=== PATIENT | male | born 1980 | race Caucasian/White ===

== ENCOUNTER 2017-08-27 13:18 | Emergency (ER) | payer MEDICAID ==
[~2017-08-27] VITALS: Ht 190.5 cm; Wt 102.1 kg
[2017-08-27 13:41] VITALS: BP 128/78
[2017-08-27] MEDS ORDERED: ACETAMINOPHEN 500 MG TABLET ONE (14:07)
[2017-08-27 14:28] LABS: RAPID INFLUENZA A Negative (Negative); RAPID INFLUENZA B Negative (Negative)
[2017-08-27] MEDS ORDERED: ACETAMINOPHEN 500 MG TABLET PO ONE (14:30)
== END 2017-08-27 14:49 | disposition home or self-care (01) ==
LOC: ED 14:35
DX: J20.8 Acute bronchitis due to other specified organisms (principal); B96.89 Other specified bacterial agents as the cause of diseases classified elsewhere; F17.210 Nicotine dependence, cigarettes, uncomplicated
CPT/HCPCS: 71020; 87400; 99285

== ENCOUNTER 2018-07-24 21:13 | Emergency (ER) | payer MEDICAID ==
[~2018-07-24] VITALS: Ht 190.5 cm; Wt 105.0 kg
[2018-07-24 21:17] VITALS: BP 140/91
[2018-07-24 22:42] LABS: ALANINE AMINOTRANSFERASE 59 U/L (12-78); ALBUMIN 3.4 g/dL (3.4-5.0); ANION GAP 10 mmol/L (5-15); CALCIUM 8.7 mg/dL (8.5-10.1); CHLORIDE 107 mmol/L (98-107); CREATININE 1.02 mg/dL (0.7-1.3)
[2018-07-24 22:45] LABS: ALKALINE PHOSPHATASE 88 U/L (45-117); BILIRUBIN,TOTAL 0.2 mg/dL (0.2-1.0); TOTAL PROTEIN 6.6 g/dL (6.4-8.2)
== END 2018-07-24 23:19 | disposition home or self-care (01) ==
LOC: ED 22:50
DX: L29.9 Pruritus, unspecified (principal); R73.9 Hyperglycemia, unspecified; F17.210 Nicotine dependence, cigarettes, uncomplicated
CPT/HCPCS: 36415; 80053; 99283; Q0177

== ENCOUNTER 2018-12-06 22:19 | Emergency (ER) | payer MEDICAID ==
[~2018-12-06] VITALS: Ht 190.5 cm; Wt 112.3 kg
[2018-12-06 23:20] LABS: MD YES; MEAN CORPUSCULAR HEMOGLOBIN 27.9 pg (27.5-34.5); MEAN CORPUSCULAR HGB CONC 33.9 g/dL (33.2-36.2); MEAN CORPUSCULAR VOLUME 82.5 fL (81-97); MEAN PLATELET VOLUME 8.6 fL (7.4-10.4); PLATELET COUNT 234 x10^3/uL (130-400); RED BLOOD COUNT 5.53 x10^6/uL (4.38-5.82)
[2018-12-06] MEDS ORDERED: ASPIRIN 81 MG TABLET CHEW ONE (23:28)
[2018-12-06] MEDS ORDERED: ASPIRIN 81 MG TABLET CHEW PO ONE (23:30)
[2018-12-06 23:32] LABS: ALANINE AMINOTRANSFERASE 54 U/L (12-78); ANION GAP 8 mmol/L (5-15); CALCIUM 8.9 mg/dL (8.5-10.1); CHLORIDE 107 mmol/L (98-107); CREATININE 1.06 mg/dL (0.7-1.3)
--- NOTE | 2018-12-06 23:36 | NUR ---
STATES NUMBNESS AND TINGLING IN L ARM W/ CP ON L SIDE AND ASSOCIATED SOB. "FEELS LIKE STABBING."x1 DAY. MONITORS APPLIED, SIDERAISL UP X2, CALL LIGHT WITHIN REACH. PT MEDICATED PER MAR
[2018-12-06 23:37] LABS: ALKALINE PHOSPHATASE 85 U/L (45-117); BILIRUBIN,TOTAL 0.5 mg/dL (0.2-1.0); TOTAL PROTEIN 7.2 g/dL (6.4-8.2); TROPONIN I < 0.015 ng/mL (0.000-0.045)
[2018-12-06] MEDS ORDERED: ENAL10TA PO (23:40)
[2018-12-06] MEDS ORDERED: MELO15TA24 PO (23:40)
[2018-12-06] MEDS ORDERED: BENZ-17 PO (23:40)
[2018-12-06] MEDS ORDERED: HYDR50TA13 PO (23:40)
[2018-12-06] MEDS ORDERED: LAMO100T PO (23:40)
[2018-12-06 23:53] LABS: BAND#(MANUAL) 0.19 x10^3/uL; BANDS%(MANUAL) 1 % (0-7); LYMPH#(MANUAL) 2.81 x10^3/uL (1-3.4); LYMPHS% (MANUAL) 15 % (22-44); MONOS#(MANUAL) 0.37 x10^3/uL (0.3-2.7); MONOS% (MANUAL) 2 % (2-9); SEG#(MANUAL) 15.33 x10^3/uL (1.8-6.8); SEGS% (MANUAL) 82 % (42-75)
[2018-12-06 23:55] LABS: <PLATELET ESTIMATE> ADEQUATE; <PLT MORPHOLOGY> NORMAL PLT MORPH; <RBC MORPHOLOGY> NORMAL
[2018-12-07] MEDS ORDERED: KETOROLAC 30 MG/1 ML IVPush ONE (00:30)
[2018-12-07] MEDS ORDERED: ALBUTEROL SULFATE 2.5 MG/3 ML NPPB ONE (00:30)
[2018-12-07] MEDS ORDERED: KETOROLAC 30 MG/1 ML ONE (00:44)
--- NOTE | 2018-12-07 00:48 | NUR ---
PT MEDICATED PER MAR. MONITORS IN PLACE, DENIES NEEDS, AWAITING CTA
[2018-12-07] MEDS ORDERED: OMNIPAQUE 350 MG/ML, 100ML BOTTLE ONE (00:58)
[2018-12-07 01:20] VITALS: BP 114/86
--- NOTE | 2018-12-07 01:21 | NUR ---
DR WHEAT AT BED SIDE FOR UPDATED POC PT WILL BE DC'D
[2018-12-07] MEDS ORDERED: CEFTRIAXONE PMX 1GM/50ML 50 ML IV ONE (01:30)
[2018-12-07] MEDS ORDERED: CEFTRIAXONE PMX 1GM/50ML 50 ML ONE (01:38)
--- NOTE | 2018-12-07 01:44 | NUR ---
IV ABX IS INFUSING THEN PT WILL BE DC'D PT UNDERSTOOD DC POC
== END 2018-12-07 02:17 | disposition home or self-care (01) ==
LOC: ED 23:28
DX: J44.1 Chronic obstructive pulmonary disease with (acute) exacerbation (principal); J15.9 Unspecified bacterial pneumonia; D72.829 Elevated white blood cell count, unspecified; F17.200 Nicotine dependence, unspecified, uncomplicated
CPT/HCPCS: 36415; 71046; 71275; 80053; 83880; 84484; 85025; 93005; 94640; 96365; 96375; 99284; J0696; J1885; J7613; Q9967

== ENCOUNTER 2019-02-19 13:38 | Inpatient (IN) | payer MEDICAID ==
[~2019-02-19] VITALS: Ht 190.5 cm; Wt 103.5 kg
[~2019-02-19 13:38] MED LIST: BENZ-17 PO; ENAL10TA PO; HYDR50TA13 PO; LAMO100T PO; MELO15TA24 PO
[2019-02-19 14:29] LABS: MEAN CORPUSCULAR HEMOGLOBIN 28.4 pg (27.5-34.5); MEAN CORPUSCULAR HGB CONC 33.1 g/dL (33.2-36.2); MEAN CORPUSCULAR VOLUME 85.9 fL (81-97); MEAN PLATELET VOLUME 8.9 fL (7.4-10.4); PLATELET COUNT 211 x10^3/uL (130-400)
[2019-02-19] MEDS ORDERED: ONDANSETRON 2MG/ML, 2ML IVPush ONE (14:30)
[2019-02-19] MEDS ORDERED: SODIUM CHLORIDE FLUSH 10ML SYR IVF ONE (14:30)
[2019-02-19 14:38] LABS: INTERNATIONAL NORMALIZED RATIO 1.07 (0.93-1.1); PROTHROMBIN TIME 11.2 Seconds (9.6-11.5)
[2019-02-19 14:39] LABS: ALANINE AMINOTRANSFERASE 31 U/L (12-78); ALBUMIN 3.7 g/dL (3.4-5.0); ANION GAP 10 mmol/L (5-15); CALCIUM 9.2 mg/dL (8.5-10.1); CHLORIDE 100 mmol/L (98-107); CREATININE 1.06 mg/dL (0.7-1.3)
[2019-02-19 14:41] LABS: ALKALINE PHOSPHATASE 93 U/L (45-117); TOTAL PROTEIN 7.9 g/dL (6.4-8.2)
[2019-02-19 14:42] LABS: MD YES
[2019-02-19 14:45] LABS: <RBC MORPHOLOGY> NORMAL; BAND#(MANUAL) 0.65 x10^3/uL; BANDS%(MANUAL) 3 % (0-7); LYMPH#(MANUAL) 2.82 x10^3/uL (1-3.4); LYMPHS% (MANUAL) 13 % (22-44); MONOS#(MANUAL) 0.87 x10^3/uL (0.3-2.7); MONOS% (MANUAL) 4 % (2-9); SEG#(MANUAL) 17.36 x10^3/uL (1.8-6.8); SEGS% (MANUAL) 80 % (42-75)
[2019-02-19 14:46] LABS: <PLATELET ESTIMATE> ADEQUATE; <PLT MORPHOLOGY> NORMAL PLT MORPH
--- NOTE | 2019-02-19 14:49 | NUR ---
LOWER ABDOMINAL PAIN STARTED TUESDAY NIGHT. VOMITED TWICE, LAST TIME AT NOON TODAY. WEAKNESS, LEELING LIGHTHEAD, FUZZY HEADED
--- NOTE | 2019-02-19 15:06 | NUR ---
TASK RN: UA COLLECTED & SENT TO LAB PER KELLY BUCKNER.
[2019-02-19] MEDS ORDERED: ONDANSETRON 2MG/ML, 2ML ONE (15:11)
[2019-02-19] MEDS ORDERED: HYDROmorphone 1 MG/ML, 1ML VIAL ONE (15:12)
[2019-02-19] MEDS: HYDROmorphone 2 MG/ML, 1ML IVPush PRN ×2 (15:16→19:35)
--- NOTE | 2019-02-19 15:19 | NUR ---
TASK RN: ZOFRAN AND DILAUDID GIVEN PER EMAR. PT LAST FOOD INTAKE "A COUPLE OF DAYS AGO", SIPS OF GATORADE APPROX 1200 TODAY, SIPS OF WATER AFTER ARRIVAL TO ED. LAST BM: SMALL AMOUNTS. C/O PAIN TO LOWER ABD/GROIN AREA. PT'S IN ROOM.
[2019-02-19 15:20] LABS: CULTURE INDICATED? YES; MICROSCOPIC INDICATED
--- NOTE | 2019-02-19 15:22 | NUR ---
PT TO CT PER JEROD
[2019-02-19] MEDS ORDERED: OMNIPAQUE 350 MG/ML, 100ML BOTTLE ONE (15:43)
--- NOTE | 2019-02-19 16:01 | NUR ---
PT STATES SOME IMPROVEMENT IN ABDOMINAL PAIN SINCE MEDICATED AND APPEARS MORE COMFORTABLE
[2019-02-19] MEDS ORDERED: CIPROFLOXACIN/PMX 400MG/200ML 200 ML ONE (16:19)
[2019-02-19] MEDS ORDERED: METRONIDAZOLE PMX 500MG/100ML 100 ML IVPB ONE (16:30)
[2019-02-19] MEDS ORDERED: CIPROFLOXACIN/PMX 400MG/200ML 100 ML IVPB ONE (16:30)
--- NOTE | 2019-02-19 16:45 | NUR ---
HOSPITALIST AT BEDSIDE
[2019-02-19] MEDS ORDERED: SODIUM CHLORIDE FLUSH 10ML SYR IVF PRN (17:00)
--- NOTE | 2019-02-19 17:17 | NUR ---
REPORT TO CAMPBELL MENDOZA. PT TO BE TRANSPORTED
[2019-02-19] MEDS ORDERED: METRONIDAZOLE PMX 500MG/100ML 100 ML ONE (17:19)
[2019-02-19] MEDS ORDERED: morphine SULFATE 10 MG/ML, 1ML IVPush PRN (17:30)
[2019-02-19] MEDS ORDERED: ONDANSETRON 2MG/ML, 2ML IVPush PRN (17:30)
[2019-02-19] MEDS ORDERED: KETOROLAC 30 MG/1 ML IVPush PRN (17:30)
[2019-02-19 17:53] VITALS: BP 108/72
[2019-02-19] MEDS ORDERED: ENALAPRILAT 1.25 MG/ML, 2ML IVPush PRN (18:00)
[2019-02-19] MEDS ORDERED: NICOTINE 14MG/24 HR PATCH.TD24 TD ONE (18:00)
[2019-02-19] MEDS ORDERED: ALBUTEROL SULFATE 2.5MG/0.5ML NPPB PRN (18:30)
[2019-02-19 19:09] VITALS: BP 113/69
[2019-02-19] MEDS: CEFEPIME 2 GM in DEXTROSE 5% 100 ML IV SCH (21:20)
[2019-02-19] MEDS: LACTATED RINGERS 1,000 ML IV SCH (21:20)
[2019-02-19] MEDS: METRONIDAZOLE PMX 500MG/100ML 100 ML IV SCH (22:18)
[2019-02-19 23:09] VITALS: BP 119/75
[2019-02-20 03:19] VITALS: BP 109/72
[2019-02-20] MEDS: CEFEPIME 2 GM in DEXTROSE 5% 100 ML IV SCH ×3 (05:03→21:02)
[2019-02-20] MEDS: METRONIDAZOLE PMX 500MG/100ML 100 ML IV SCH ×3 (05:40→21:50)
[2019-02-20 05:44] LABS: MEAN CORPUSCULAR HEMOGLOBIN 28.1 pg (27.5-34.5); MEAN CORPUSCULAR HGB CONC 33.2 g/dL (33.2-36.2); MEAN CORPUSCULAR VOLUME 84.6 fL (81-97); MEAN PLATELET VOLUME 8.9 fL (7.4-10.4); PLATELET COUNT 207 x10^3/uL (130-400); RED BLOOD COUNT 5.26 x10^6/uL (4.38-5.82); RED CELL DISTRIBUTION WIDTH 13.7 % (9.4-14.8)
[2019-02-20 06:05] LABS: ALANINE AMINOTRANSFERASE 24 U/L (12-78); ALBUMIN 3.3 g/dL (3.4-5.0); ANION GAP 9 mmol/L (5-15); CALCIUM 8.9 mg/dL (8.5-10.1); CHLORIDE 101 mmol/L (98-107); CREATININE 1.13 mg/dL (0.7-1.3)
[2019-02-20 06:07] LABS: ALKALINE PHOSPHATASE 73 U/L (45-117); BILIRUBIN,TOTAL 0.8 mg/dL (0.2-1.0); TOTAL PROTEIN 7.4 g/dL (6.4-8.2)
[2019-02-20 06:34] LABS: MD YES
[2019-02-20 06:36] LABS: BANDS%(MANUAL) 10 % (0-7); LYMPH#(MANUAL) 2.31 x10^3/uL (1-3.4); LYMPHS% (MANUAL) 11 % (22-44); MONOS#(MANUAL) 0.21 x10^3/uL (0.3-2.7); MONOS% (MANUAL) 1 % (2-9); SEG#(MANUAL) 16.38 x10^3/uL (1.8-6.8); SEGS% (MANUAL) 78 % (42-75)
[2019-02-20 06:37] LABS: <PLATELET ESTIMATE> ADEQUATE; <PLT MORPHOLOGY> NORMAL PLT MORPH; <RBC MORPHOLOGY> NORMAL
[2019-02-20 07:43] LABS: HEMOGLOBIN A1C 6.2 % (4.2-6.3)
[2019-02-20 07:52] VITALS: BP 115/73
[2019-02-20] MEDS: LACTATED RINGERS 1,000 ML IV SCH ×2 (07:52→15:30)
[2019-02-20] MEDS: LAMOTRIGINE 100 MG TABLET PO SCH ×2 (07:52→21:04)
[2019-02-20] MEDS ORDERED: OXYcodone IR 5MG TABLET PO PRN (08:30)
[2019-02-20] MEDS ORDERED: ACETAMINOPHEN 500 MG TABLET PO PRN (08:30)
[2019-02-20 12:23] VITALS: BP 116/76
[2019-02-20 20:49] VITALS: BP 118/68
[2019-02-20] MEDS ORDERED: hydrOXyzine 50MG TABLET PO SCH (21:00)
[2019-02-21 00:52] VITALS: BP 119/77
[2019-02-21] MEDS: LACTATED RINGERS 1,000 ML IV SCH (03:47)
[2019-02-21 05:03] LABS: BASOPHILS # (AUTO) 0.08 x10^3/uL (0-0.1); BASOPHILS % (AUTO) 1 % (0-1); EOSINOPHILS # (AUTO) 0.07 x10^3/uL (0-0.4); EOSINOPHILS % (AUTO) 1 % (1-7); LYMPHOCYTES % (AUTO) 13 % (22-44); MD NO; MEAN CORPUSCULAR HEMOGLOBIN 28.3 pg (27.5-34.5); MEAN CORPUSCULAR HGB CONC 32.8 g/dL (33.2-36.2); MEAN CORPUSCULAR VOLUME 86.4 fL (81-97); MEAN PLATELET VOLUME 9.2 fL (7.4-10.4); MONOCYTES # (AUTO) 0.92 x10^3/uL (0.2-0.8); MONOCYTES % (AUTO) 8 % (2-9); NEUTROPHILS # (AUTO) 9.61 x10^3/uL (1.8-6.8); NEUTROPHILS % (AUTO) 78 % (42-75); PLATELET COUNT 194 x10^3/uL (130-400); RED BLOOD COUNT 5.03 x10^6/uL (4.38-5.82); RED CELL DISTRIBUTION WIDTH 13.9 % (9.4-14.8)
[2019-02-21 05:07] LABS: ANION GAP 5 mmol/L (5-15); CALCIUM 8.7 mg/dL (8.5-10.1); CHLORIDE 104 mmol/L (98-107)
[2019-02-21 05:08] LABS: CREATININE 0.97 mg/dL (0.7-1.3)
[2019-02-21] MEDS: CEFEPIME 2 GM in DEXTROSE 5% 100 ML IV SCH (05:14)
[2019-02-21] MEDS: METRONIDAZOLE PMX 500MG/100ML 100 ML IV SCH (05:54)
[2019-02-21 07:11] VITALS: BP 104/70
[2019-02-21] MEDS: LAMOTRIGINE 100 MG TABLET PO SCH (08:30)
[2019-02-21] MEDS ORDERED: LISI-420 PO ×2 (12:04→12:05)
[2019-02-21] MEDS ORDERED: CEFU500T50 PO (12:08)
[2019-02-21] MEDS ORDERED: METR-90 PO (12:08)
[2019-02-21 13:01] VITALS: BP 107/69
[2019-02-21] MEDS ORDERED: LACTATED RINGERS 1,000 ML IV SCH (18:00)
== END 2019-02-21 13:25 | disposition home or self-care (01) | DRG 392 ==
LOC: ED 16:24 → EDIP 16:42 → 3NE 17:03 → DCLOUNGE 02-21 13:16
PROVIDERS: ADMIT Family Medicine; ATTEND Family Medicine
DX: K57.20 Diverticulitis of large intestine with perforation and abscess without bleeding (principal); F15.11 Other stimulant abuse, in remission; F17.210 Nicotine dependence, cigarettes, uncomplicated; G40.909 Epilepsy, unspecified, not intractable, without status epilepticus; G43.909 Migraine, unspecified, not intractable, without status migrainosus; I11.0 Hypertensive heart disease with heart failure; I50.9 Heart failure, unspecified; J44.9 Chronic obstructive pulmonary disease, unspecified; K59.00 Constipation, unspecified; Z90.89 Acquired absence of other organs; Z91.018 Allergy to other foods; Z88.0 Allergy status to penicillin; Z88.8 Allergy status to other drugs, medicaments and biological substances; Z79.899 Other long term (current) drug therapy
CPT/HCPCS: 36415; 74177; 80048; 80053; 81001; 83036; 83605; 83690; 85025; 85610; 85730; 87040; 87086; 96374; 96375; G0378; J0744; J1170; J1885; J2405; Q9967; J2270; J7120

== ENCOUNTER 2019-03-16 15:18 | Outpatient (CLI) | payer MEDICAID ==
[~2019-03-16 15:18] MED LIST changes: +CEFU500T50 PO; +LISI-420 PO; +METR-90 PO
== END 2019-03-16 23:59 | disposition home or self-care (01) ==
LOC: CFH 15:18
PROVIDERS: ATTEND Internal Medicine Cardiovascular Disease
DX: R07.89 Other chest pain (principal); I10 Essential (primary) hypertension; E78.5 Hyperlipidemia, unspecified
CPT/HCPCS: 93306

== ENCOUNTER 2019-03-27 08:00 | Outpatient (CLI) | payer MEDICAID ==
[~2019-03-27 08:00] MED LIST changes: +REGADENOSON 0.4 MG/5 ML SYRINGE ONE
[2019-03-27] MEDS ORDERED: REGADENOSON 0.4 MG/5 ML SYRINGE ONE (12:45)
[2019-05-14] MEDS ORDERED: OXYC-302 PO (14:00)
== END 2019-03-27 23:59 | disposition home or self-care (01) ==
LOC: CFH 08:00
PROVIDERS: ATTEND Internal Medicine Cardiovascular Disease
DX: R07.89 Other chest pain (principal); I10 Essential (primary) hypertension
CPT/HCPCS: 78452; 93017; A9502; J2785

== ENCOUNTER 2019-05-07 15:50 | Outpatient (CLI) | payer MEDICAID ==
[~2019-05-07 15:50] MED LIST changes: -REGADENOSON 0.4 MG/5 ML SYRINGE ONE
[2019-05-07] MEDS ORDERED: LISI-170 PO (16:27)
[2019-05-14] MEDS ORDERED: OXYC-302 PO (14:00)
== END 2019-05-07 23:59 | disposition home or self-care (01) ==
LOC: STAR 15:50
PROVIDERS: ATTEND Surgery
DX: Z01.818 Encounter for other preprocedural examination (principal); K57.90 Diverticulosis of intestine, part unspecified, without perforation or abscess without bleeding; Z88.0 Allergy status to penicillin
CPT/HCPCS: 93005

== ENCOUNTER 2019-09-15 19:57 | Emergency (ER) | payer MEDICAID ==
[~2019-09-15] VITALS: Ht 190.5 cm; Wt 106.3 kg
[~2019-09-15 19:57] MED LIST changes: +LISI-170 PO; +OXYC-302 PO
[2019-09-15 20:33] LABS: BASOPHILS # (AUTO) 0.03 x10^3/uL (0-0.1); BASOPHILS % (AUTO) 0 % (0-1); EOSINOPHILS # (AUTO) 0.25 x10^3/uL (0-0.4); EOSINOPHILS % (AUTO) 3 % (1-7); LYMPHOCYTES # (AUTO) 2.75 x10^3/uL (1-3.4); LYMPHOCYTES % (AUTO) 32 % (22-44); MD NO; MEAN CORPUSCULAR HEMOGLOBIN 28.2 pg (27.5-34.5); MEAN CORPUSCULAR HGB CONC 33.2 g/dL (33.2-36.2); MEAN PLATELET VOLUME 9.3 fL (7.4-10.4); MONOCYTES # (AUTO) 0.68 x10^3/uL (0.2-0.8); MONOCYTES % (AUTO) 8 % (2-9); NEUTROPHILS # (AUTO) 4.84 x10^3/uL (1.8-6.8); NEUTROPHILS % (AUTO) 57 % (42-75); PLATELET COUNT 253 x10^3/uL (130-400); RED BLOOD COUNT 5.63 x10^6/uL (4.38-5.82); RED CELL DISTRIBUTION WIDTH 13.8 % (9.4-14.8)
--- NOTE | 2019-09-15 20:35 | NUR ---
pt has a hx of diverticulities with a partial colon removal in 2018. pt states that ever since then he has pain in the RLQ
[2019-09-15 20:40] LABS: ALANINE AMINOTRANSFERASE 52 U/L (12-78); ALBUMIN 3.8 g/dL (3.4-5.0); ANION GAP 11 mmol/L (5-15); CALCIUM 8.4 mg/dL (8.5-10.1); CHLORIDE 107 mmol/L (98-107); CREATININE 1.04 mg/dL (0.7-1.3)
[2019-09-15 20:42] LABS: ALKALINE PHOSPHATASE 70 U/L (45-117); BILIRUBIN,TOTAL 0.3 mg/dL (0.2-1.0); TOTAL PROTEIN 7.2 g/dL (6.4-8.2)
[2019-09-15 21:30] VITALS: BP 112/64
[2019-09-15] MEDS ORDERED: OMNIPAQUE 350 MG/ML, 100ML BOTTLE ONE (22:31)
== END 2019-09-15 22:20 | disposition home or self-care (01) ==
LOC: ED 21:14
DX: R10.84 Generalized abdominal pain (principal); J44.9 Chronic obstructive pulmonary disease, unspecified; I10 Essential (primary) hypertension; F17.200 Nicotine dependence, unspecified, uncomplicated; Z98.890 Other specified postprocedural states
CPT/HCPCS: 36415; 74177; 80053; 83605; 85025; 99284; Q9967

== ENCOUNTER 2019-10-08 11:57 | Emergency (ER) | payer MEDICAID ==
[~2019-10-08] VITALS: Ht 190.5 cm; Wt 104.2 kg
[~2019-10-08 11:57] MED LIST changes: -HYDR50TA13 PO; +HYDR50TA99 PO; -LAMO100T PO; +LAMO100T8 PO
[2019-10-08 12:42] VITALS: BP 116/79
--- NOTE | 2019-10-08 12:55 | NUR ---
PT HERE WITH LEFT WRIST PAIN, STATES LIFTING A DRYER AND IT "STARTING HURTING DOWN TO MY FINGERS."
--- NOTE | 2019-10-08 14:05 | NUR ---
Patient/Caregiver given discharge instructions and they have confirmed that they understand the instructions. Patient ambulatory with steady gait.
== END 2019-10-08 14:06 | disposition home or self-care (01) ==
LOC: ED 13:50
DX: S63.522A Sprain of radiocarpal joint of left wrist, initial encounter (principal); X58.XXXA Exposure to other specified factors, initial encounter; Y93.89 Activity, other specified; Y92.098 Other place in other non-institutional residence as the place of occurrence of the external cause; Y99.8 Other external cause status
CPT/HCPCS: 29125; 99283

== ENCOUNTER 2020-02-16 18:36 | Emergency (ER) | payer MEDICAID ==
[~2020-02-16] VITALS: Ht 190.5 cm; Wt 107.2 kg
--- NOTE | 2020-02-16 18:44 | NUR ---
PT AMBULATES WELL WITH CANE.
--- NOTE | 2020-02-16 19:14 | NUR ---
C/O LOW BACK PAIN, PAIN TO LT POSTERIOR RIB W/ BREATHING. STATES HE MISSED THIRD STEP OF STAIRCASE A WEEK AGO. NO PAIN MED TODAY.
[2020-02-16] MEDS ORDERED: ALBU2.5V INH (19:35)
[2020-02-16] MEDS ORDERED: FLUT1BLS INH (19:35)
[2020-02-16] MEDS ORDERED: MONT10TA11 PO (19:35)
[2020-02-16] MEDS ORDERED: OMEP20TA62 PO (19:35)
--- NOTE | 2020-02-16 21:01 | NUR ---
PT DRESSED. AMBULATORY TO & FROM [facility] W/OUT INCIDENT, USING OWN CANE.
[2020-02-16 21:16] VITALS: BP 133/81
== END 2020-02-16 21:32 | disposition home or self-care (01) ==
LOC: ED 20:35
DX: S39.012A Strain of muscle, fascia and tendon of lower back, initial encounter (principal); S20.212A Contusion of left front wall of thorax, initial encounter; I10 Essential (primary) hypertension; J44.9 Chronic obstructive pulmonary disease, unspecified; Z90.89 Acquired absence of other organs; F17.200 Nicotine dependence, unspecified, uncomplicated; W01.0XXA Fall on same level from slipping, tripping and stumbling without subsequent striking against object, initial encounter; Y93.89 Activity, other specified; Y92.89 Other specified places as the place of occurrence of the external cause; Y99.8 Other external cause status
CPT/HCPCS: 72110; 99283; 99284

== ENCOUNTER 2020-07-23 13:28 | Emergency (ER) | payer MEDICAID ==
[~2020-07-23] VITALS: Ht 190.5 cm; Wt 102.0 kg
[~2020-07-23 13:28] MED LIST changes: +ALBU2.5V INH; -ENAL10TA PO; +ENAL10TA9 PO; +FLUT1BLS INH; +MONT10TA11 PO; +OMEP20TA62 PO
[2020-07-23 14:19] LABS: BASOPHILS % (AUTO) 1 % (0-1); EOSINOPHILS % (AUTO) 1 % (1-7); LYMPHOCYTES % (AUTO) 21 % (22-44); MEAN CORPUSCULAR HEMOGLOBIN 28.3 pg (27.5-34.5); MEAN CORPUSCULAR HGB CONC 33.7 g/dL (33.2-36.2); MEAN PLATELET VOLUME 9.2 fL (7.4-10.4); MONOCYTES % (AUTO) 6 % (2-9); NEUTROPHILS % (AUTO) 72 % (42-75); PH, VENOUS 7.368 pH (7.320-7.420); PLATELET COUNT 220 x10^3/uL (130-400); RED BLOOD COUNT 6.05 x10^6/uL (4.38-5.82); RED CELL DISTRIBUTION WIDTH 13.1 % (9.4-14.8)
[2020-07-23 14:20] LABS: MD NO
[2020-07-23 14:31] LABS: ALANINE AMINOTRANSFERASE 127 U/L (12-78); ANION GAP 9 mmol/L (5-15); CALCIUM 9.5 mg/dL (8.5-10.1); CHLORIDE 101 mmol/L (98-107); CREATININE 1.03 mg/dL (0.7-1.3)
[2020-07-23 14:34] LABS: ALKALINE PHOSPHATASE 130 U/L (45-117); BILIRUBIN,TOTAL 0.7 mg/dL (0.2-1.0)
[2020-07-23 15:25] LABS: ACETONE, SERUM Moderate(40mg/dL) (Negative)
--- NOTE | 2020-07-23 17:15 | NUR ---
PT BROUGHT TO ER ROOM.
--- NOTE | 2020-07-23 17:49 | NUR ---
PT IN BED, VSS, NO DISTRESS,
[2020-07-23] MEDS ORDERED: SODIUM CHLORIDE 0.9% 1,000ML IVBOLUS ONE (18:00)
[2020-07-23] MEDS ORDERED: ONDANSETRON 2MG/ML, 2ML IVPush ONE (18:30)
[2020-07-23] MEDS ORDERED: ONDANSETRON 2MG/ML, 2ML ONE (18:55)
--- NOTE | 2020-07-23 19:20 | NUR ---
REPORT FROM KELLY MENDEZ. FIRST CONTACT WITH PT. IV STARTED, IVF INFUSING, MEDICATED PER ORDER. VSS, URINE SENT. PT IN NAD, RR EQUAL AND UNLABORED. FAMILY AT BEDSIDE. AIDET PROVIDED. WILL CONTINUE TO MONITOR.
[2020-07-23 19:24] LABS: MICROSCOPIC AUTO
[2020-07-23 20:15] VITALS: BP 135/74
== END 2020-07-23 20:19 | disposition home or self-care (01) ==
LOC: ED 17:40
DX: E11.65 Type 2 diabetes mellitus with hyperglycemia (principal); R11.2 Nausea with vomiting, unspecified; I10 Essential (primary) hypertension; J44.9 Chronic obstructive pulmonary disease, unspecified; F17.210 Nicotine dependence, cigarettes, uncomplicated
CPT/HCPCS: 36415; 80053; 81001; 82010; 82803; 85025; 96361; 96374; 99283; J2405; J7030

== ENCOUNTER 2021-05-13 10:34 | Outpatient (CLI) | payer MEDICAID ==
[~2021-05-13 10:34] MED LIST changes: -LISI-420 PO; +LISI20TA21 PO; -MONT10TA11 PO; +MONT10TA17 PO; -OXYC-302 PO; +OXYC1TAB12 PO
== END 2021-05-13 23:59 | disposition home or self-care (01) ==
LOC: RAD 10:34
PROVIDERS: ATTEND Internal Medicine Cardiovascular Disease
DX: G45.9 Transient cerebral ischemic attack, unspecified (principal); R20.2 Paresthesia of skin
CPT/HCPCS: 70450

== ENCOUNTER 2021-05-19 18:47 | Emergency (ER) | payer MEDICAID ==
[~2021-05-19] VITALS: Ht 190.5 cm; Wt 88.0 kg
[2021-05-19 18:54] VITALS: BP 106/68
[2021-05-19] MEDS ORDERED: DIPH,PERTUSS(ACELL),TET VAC/PF 0.5 ML IM-VACC ONE ×2 (19:00→19:30)
[2021-05-19] MEDS ORDERED: LIDOCAINE-MPF 1%, 5ML ONE (19:27)
[2021-05-19] MEDS ORDERED: NEOSPORIN OINT. PKT 1 PACKET ONE (19:52)
== END 2021-05-19 20:12 | disposition home or self-care (01) ==
LOC: ED 18:52
DX: S61.012A Laceration without foreign body of left thumb without damage to nail, initial encounter (principal); X58.XXXA Exposure to other specified factors, initial encounter; Y93.89 Activity, other specified; Y92.89 Other specified places as the place of occurrence of the external cause; Y99.8 Other external cause status
CPT/HCPCS: 12001; 90471; 90715; 99283